=== PATIENT | female | born 1945 | race Caucasian/White ===

== ENCOUNTER 2021-05-14 10:52 | Inpatient (IN) ==
[2021-05-14] MEDS ORDERED: *HR* HYDROmorphone PF 0.5 MG/0.5 ML SYRINGE IVP PRN (11:12)
[2021-05-14] MEDS ORDERED: Ringers Solution, Lactated 1,000 ML IVC SCH (11:15)
[2021-05-14] MEDS ORDERED: Acetaminophen IV 1,000 MG/100 ML BAG IVPB ONE (11:24)
[2021-05-14] MEDS ORDERED: cefOXitin 2,000 MG in Water for inj. (sterile) 10 ML IVP ONE (11:26)
[2021-05-14] MEDS ORDERED: Lidocaine -MPF 2% 5 ML VIAL ONE (13:12)
[2021-05-14] MEDS ORDERED: *HR* Succinylcholine 200 MG/10 ML VIAL IVP ONE (13:12)
[2021-05-14] MEDS ORDERED: *HR* Rocuronium Bromide 50 MG/5 ML VIAL ONE ×2 (13:12→16:57)
[2021-05-14] MEDS ORDERED: Ondansetron 4 MG/2 ML VIAL ONE (13:13)
[2021-05-14] MEDS ORDERED: Lidocaine HCL 4 ML Topical Solution (Laryng-O-Jet Kit Sterile Pak) TP ONE (13:13)
[2021-05-14] MEDS ORDERED: *HR* Propofol 200 MG/20 ML VIAL IVP ONE (13:41)
[2021-05-14] MEDS ORDERED: *HR* FentaNYL (PF) 100 MCG/2 ML VIAL ONE ×2 (14:14→16:03)
[2021-05-14] MEDS ORDERED: Sugammadex Sodium 200 MG/2 ML VIAL IV ONE (17:34)
[2021-05-14] MEDS ORDERED: *HR* HYDROMORPHONE 2 MG/ML VIAL ONE (17:42)
[2021-05-14] MEDS ORDERED: D5% in Water 1,000 ML IVC PRN (19:30)
[2021-05-14] MEDS ORDERED: Loratadine 10 MG TABLET PO PRN (19:30)
[2021-05-14] MEDS ORDERED: *HR* Dextrose 50 % in Water (Syg) 50 ML SYRINGE IVP PRN (19:30)
[2021-05-14] MEDS ORDERED: Dextrose Gel 15 GM/37.5 ML TUBE PO PRN ×2 (19:30)
[2021-05-14] MEDS ORDERED: Fluticasone Propionate Nasal 50 MCG/SPRAY BOTTLE NS PRN (19:30)
[2021-05-14] MEDS: Acetaminophen IV 1,000 MG/100 ML BAG IVPB SCH (21:26)
[2021-05-14] MEDS: Insulin LISPRO 300 UNITS/3 ML VIAL SUBQ SCH (21:27)
[2021-05-14] MEDS: FLUoxetine 20 MG CAPSULE PO SCH (21:27)
[2021-05-14] MEDS: 0.9 % Sodium Chloride 1,000 ML IVC SCH (21:46)
[2021-05-15] MEDS: Piperacillin/Tazobactam 3.375 GM in 0.9 % Sodium Chloride Mini Bag 100 ML IVPB SCH ×3 (00:06→15:10)
[2021-05-15] MEDS: Acetaminophen IV 1,000 MG/100 ML BAG IVPB SCH ×5 (00:06→23:24)
[2021-05-15] MEDS: Insulin LISPRO 300 UNITS/3 ML VIAL SUBQ SCH ×5 (00:07→22:42)
[2021-05-15 02:19] LABS: Basophils % 0.1 %; Hematocrit 24.1 % (35.3-44.9); Hemoglobin 8.5 g/dL (11.5-15.4); Immature Granulocytes % 0.6 % (0-4); Lymphocytes # 0.3 K/mcL (0.6-4.6); Lymphocytes % 2.2 %; Mean Corpuscular HGB Conc 35.3 g/dL (31.6-35.5); Mean Corpuscular Hemoglobin 38.3 pg (28.0-33.3); Mean Corpuscular Volume 108.6 fL (83.0-100.0); Mean Platelet Volume 9.3 fL (9.4-12.4); Monocytes # 0.7 K/mcL (0.0-1.3); Monocytes % 4.9 %; Nucleated Red Blood Cells 0.3 /100 WBC (0); Platelet Count 340 K/mcL (140-400); Red Blood Count 2.22 M/mcL (3.82-4.97); Red Cell Distribution Width 15.7 % (11.5-14.5); Segmented Neutrophils % 92.2 %; White Blood Count 15.2 K/mcL (4.3-11.1)
[2021-05-15 02:37] LABS: BUN/Creatinine Ratio 14 (6-26); Blood Urea Nitrogen 8 mg/dL (8-23); Carbon Dioxide 24 mEq/L (23-29); Chloride 98 mEq/L (98-107); Glucose 140 mg/dL (70-105); Magnesium 1.7 mg/dL (1.6-2.6); Osmolality,Calculated 271 (280-300); Phosphorous 4.5 mg/dL (2.7-4.5); Potassium 3.6 mEq/L (3.5-5.1); Sodium 130 mEq/L (136-145); eGFR For African Americans > 60 (> 60); eGFR For Non-African Americans > 60 (> 60)
[2021-05-15] MEDS: Levothyroxine 25 MCG TABLET PO SCH (06:07)
[2021-05-15] MEDS: Pantoprazole 40 MG VIAL IVP SCH (08:03)
[2021-05-15] MEDS: amLODIPine 5 MG TABLET PO SCH (08:03)
[2021-05-15] MEDS: FLUoxetine 20 MG CAPSULE PO SCH ×3 (08:04→19:57)
[2021-05-15] MEDS: hydroCHLOROthiazide 25 MG TABLET PO SCH (08:04)
[2021-05-15] MEDS: 0.9 % Sodium Chloride 1,000 ML IVC SCH (09:58)
[2021-05-15] MEDS ORDERED: *HR* Heparin 5,000 UNIT/ML VIAL SQ SCH (18:00)
[2021-05-15] MEDS ORDERED: *HR* FentaNYL (PF) 100 MCG/2 ML VIAL ONE (19:22)
[2021-05-16] MEDS: Ondansetron 4 MG/2 ML VIAL IVP PRN (01:25)
[2021-05-16 04:18] LABS: BUN/Creatinine Ratio 12 (6-26); Blood Urea Nitrogen 5 mg/dL (8-23); Calcium 7.9 mg/dL (8.6-10.3); Carbon Dioxide 23 mEq/L (23-29); Chloride 100 mEq/L (98-107); Glucose 142 mg/dL (70-105); Osmolality,Calculated 272 (280-300); Sodium 131 mEq/L (136-145); eGFR For African Americans > 60 (> 60); eGFR For Non-African Americans > 60 (> 60)
[2021-05-16 05:34] LABS: Basophils # 0.1 K/mcL (0.0-0.2); Basophils % 0.6 %; Eosinophils # 0.1 K/mcL (0.0-0.6); Eosinophils % 0.8 %; Hematocrit 18.2 % (35.3-44.9); Hemoglobin 6.3 g/dL (11.5-15.4); Immature Granulocytes % 0.6 % (0-4); Lymphocytes # 0.8 K/mcL (0.6-4.6); Lymphocytes % 8.3 %; Mean Corpuscular HGB Conc 34.6 g/dL (31.6-35.5); Mean Corpuscular Hemoglobin 38.7 pg (28.0-33.3); Mean Corpuscular Volume 111.7 fL (83.0-100.0); Mean Platelet Volume 9.7 fL (9.4-12.4); Monocytes % 10.6 %; Neutrophils # 7.2 K/mcL (1.6-8.9); Nucleated Red Blood Cells 0.4 /100 WBC (0); Platelet Count 285 K/mcL (140-400); Red Blood Count 1.63 M/mcL (3.82-4.97); Red Cell Distribution Width 16.3 % (11.5-14.5); Segmented Neutrophils % 79.1 %; White Blood Count 9.1 K/mcL (4.3-11.1)
[2021-05-16 05:50] LABS: Anisocytosis 2+ (Not Present)
[2021-05-16 05:51] LABS: Macrocytosis Present (Not Present); Platelet Estimate Normal (Normal); Poikilocytosis 1+ (Not Present)
[2021-05-16] MEDS: Acetaminophen IV 1,000 MG/100 ML BAG IVPB SCH ×4 (05:56→23:46)
[2021-05-16] MEDS: Insulin LISPRO 300 UNITS/3 ML VIAL SUBQ SCH ×4 (07:27→21:44)
[2021-05-16] MEDS ORDERED: 0.9 % Sodium Chloride 250 ML ONE (07:32)
[2021-05-16] MEDS ORDERED: Furosemide 20 MG/2 ML VIAL IVP ONE (08:17)
[2021-05-16 08:30] LABS: Magnesium 1.6 mg/dL (1.6-2.6); Phosphorous 2.2 mg/dL (2.7-4.5)
[2021-05-16] MEDS: Pantoprazole 40 MG VIAL IVP SCH (10:07)
[2021-05-16] MEDS: FLUoxetine 20 MG CAPSULE PO SCH ×3 (10:08→21:44)
[2021-05-16] MEDS: hydroCHLOROthiazide 25 MG TABLET PO SCH (10:08)
[2021-05-16] MEDS: amLODIPine 5 MG TABLET PO SCH (10:08)
[2021-05-16 12:05] LABS: Hematocrit 23.8 % (35.3-44.9)
[2021-05-16 12:06] LABS: Hemoglobin 8.3 g/dL (11.5-15.4)
[2021-05-16] MEDS ORDERED: Potassium Phosphate 44 MEQ in 0.9 % Sodium Chloride 250 ML IVPB ONE (13:00)
[2021-05-17 01:37] LABS: BUN/Creatinine Ratio 11 (6-26); Blood Urea Nitrogen 5 mg/dL (8-23); Calcium 8.1 mg/dL (8.6-10.3); Carbon Dioxide 27 mEq/L (23-29); Chloride 97 mEq/L (98-107); Glucose 123 mg/dL (70-105); Magnesium 1.6 mg/dL (1.6-2.6); Osmolality,Calculated 271 (280-300); Phosphorous 3.4 mg/dL (2.7-4.5); Potassium 3.2 mEq/L (3.5-5.1); Sodium 131 mEq/L (136-145); eGFR For African Americans > 60 (> 60); eGFR For Non-African Americans > 60 (> 60)
[2021-05-17 02:53] LABS: Basophils # 0.1 K/mcL (0.0-0.2); Basophils % 0.7 %; Eosinophils # 0.2 K/mcL (0.0-0.6); Eosinophils % 3.3 %; Hematocrit 23.3 % (35.3-44.9); Immature Granulocytes % 0.6 % (0-4); Lymphocytes # 0.9 K/mcL (0.6-4.6); Lymphocytes % 13.8 %; Mean Corpuscular HGB Conc 34.3 g/dL (31.6-35.5); Mean Corpuscular Hemoglobin 35.7 pg (28.0-33.3); Mean Platelet Volume 9.4 fL (9.4-12.4); Monocytes # 0.9 K/mcL (0.0-1.3); Monocytes % 13.6 %; Neutrophils # 4.6 K/mcL (1.6-8.9); Nucleated Red Blood Cells 0.4 /100 WBC (0); Platelet Count 308 K/mcL (140-400); Red Blood Count 2.24 M/mcL (3.82-4.97); Red Cell Distribution Width 20.9 % (11.5-14.5); White Blood Count 6.7 K/mcL (4.3-11.1)
[2021-05-17] MEDS: Acetaminophen IV 1,000 MG/100 ML BAG IVPB SCH (05:23)
[2021-05-17] MEDS: Levothyroxine 25 MCG TABLET PO SCH (05:23)
[2021-05-17] MEDS: Ondansetron 4 MG/2 ML VIAL IVP PRN (05:37)
[2021-05-17] MEDS: Insulin LISPRO 300 UNITS/3 ML VIAL SUBQ SCH ×4 (08:15→21:07)
[2021-05-17] MEDS ORDERED: *HR* HYDROcodone/Acet 5/325 mg TABLET PO ONE (09:14)
[2021-05-17] MEDS ORDERED: Acetaminophen 325 MG TABLET PO PRN (09:16)
[2021-05-17] MEDS: amLODIPine 5 MG TABLET PO SCH (10:02)
[2021-05-17] MEDS: hydroCHLOROthiazide 25 MG TABLET PO SCH (10:02)
[2021-05-17] MEDS: FLUoxetine 20 MG CAPSULE PO SCH ×3 (10:03→21:07)
[2021-05-17] MEDS: Pantoprazole 40 MG VIAL IVP SCH (10:03)
[2021-05-17] MEDS: *HR* HYDROcodone/Acet 5/325 mg TABLET PO PRN ×2 (11:43→22:28)
[2021-05-18 02:57] LABS: Basophils # 0.1 K/mcL (0.0-0.2); Basophils % 0.9 %; Eosinophils # 0.2 K/mcL (0.0-0.6); Eosinophils % 2.2 %; Hematocrit 24.1 % (35.3-44.9); Hemoglobin 8.2 g/dL (11.5-15.4); Immature Granulocytes % 0.7 % (0-4); Lymphocytes # 0.8 K/mcL (0.6-4.6); Lymphocytes % 12.5 %; Mean Corpuscular Hemoglobin 35.3 pg (28.0-33.3); Mean Corpuscular Volume 103.9 fL (83.0-100.0); Mean Platelet Volume 9.5 fL (9.4-12.4); Monocytes # 0.8 K/mcL (0.0-1.3); Monocytes % 11.9 %; Neutrophils # 4.8 K/mcL (1.6-8.9); Nucleated Red Blood Cells 1.3 /100 WBC (0); Platelet Count 332 K/mcL (140-400); Red Blood Count 2.32 M/mcL (3.82-4.97); Segmented Neutrophils % 71.8 %; White Blood Count 6.7 K/mcL (4.3-11.1)
[2021-05-18] MEDS: Levothyroxine 25 MCG TABLET PO SCH (05:46)
[2021-05-18 09:07] VITALS: BP 117/54; PULSE 85; TEMP 96.9; O2SAT 92
[2021-05-18] MEDS: Insulin LISPRO 300 UNITS/3 ML VIAL SUBQ SCH (09:48)
[2021-05-18] MEDS: FLUoxetine 20 MG CAPSULE PO SCH (09:58)
[2021-05-18] MEDS: Pantoprazole 40 MG VIAL IVP SCH (09:58)
[2021-05-18] MEDS: hydroCHLOROthiazide 25 MG TABLET PO SCH (09:58)
[2021-05-18] MEDS: amLODIPine 5 MG TABLET PO SCH (09:58)
[2021-05-18] MEDS: *HR* HYDROcodone/Acet 5/325 mg TABLET PO PRN (11:26)
== END 2021-05-18 12:00 | disposition home or self-care (01) | DRG 331 ==
LOC: SAMDAY 10:52 → 3ANU 19:00
PROVIDERS: ADMIT Surgery; ATTEND Surgery

== ENCOUNTER 2021-12-15 07:43 | Inpatient (IN) ==
[2021-12-15] MEDS ORDERED: Acetaminophen IV 1,000 MG/100 ML BAG IVPB ONE (08:56)
[2021-12-15] MEDS ORDERED: Ondansetron 4 MG/2 ML VIAL IVP PRN ×2 (08:57→15:33)
[2021-12-15] MEDS ORDERED: *HR* FentaNYL (PF) 100 MCG/2 ML VIAL IVP PRN (08:57)
[2021-12-15] MEDS ORDERED: Ringers Solution, Lactated 1,000 ML IVC SCH (09:00)
[2021-12-15] MEDS ORDERED: CeFAZolin Syr 2,000MG/20 ML 2,000 MG/20 ML SYRINGE IVPB ONE (09:00)
[2021-12-15] MEDS ORDERED: *HR* Propofol 200 MG/20 ML VIAL IVP ONE (10:42)
[2021-12-15] MEDS ORDERED: *HR* Rocuronium Bromide 50 MG/5 ML VIAL ONE ×2 (10:42→12:24)
[2021-12-15] MEDS ORDERED: Lidocaine -MPF 2% 2 ML VIAL ONE (10:42)
[2021-12-15] MEDS ORDERED: Ondansetron 4 MG/2 ML VIAL ONE (10:42)
[2021-12-15] MEDS ORDERED: *HR* FentaNYL (PF) 100 MCG/2 ML VIAL ONE ×2 (10:44→12:57)
[2021-12-15] MEDS ORDERED: Sugammadex Sodium 200 MG/2 ML VIAL IV ONE (12:29)
[2021-12-15] MEDS ORDERED: *HR* HYDROMORPHONE 2 MG/ML VIAL ONE (13:20)
[2021-12-15] MEDS ORDERED: Naloxone 0.4 MG/ML INJ IVP PRN ×2 (14:34→15:33)
[2021-12-15] MEDS ORDERED: D5% in Water 1,000 ML IVC PRN (15:33)
[2021-12-15] MEDS ORDERED: NON-FORMULARY MEDICATION 1 EACH EACH (Alendronate Sodium [Fosamax] 70 MG Tablet) PO SCH (15:33)
[2021-12-15] MEDS ORDERED: *HR* OxyCODONE/APAP 5/325 TABLET PO PRN (15:33)
[2021-12-15] MEDS ORDERED: Dextrose Gel 15 GM/37.5 ML TUBE PO PRN ×2 (15:33)
[2021-12-15] MEDS ORDERED: *HR* Metoprolol 5 MG/5 ML VIAL IVP PRN (15:33)
[2021-12-15] MEDS ORDERED: *HR* Dextrose 50 % in Water (Syg) 50 ML SYRINGE IVP PRN (15:33)
[2021-12-15] MEDS ORDERED: Fluticasone Propionate Nasal 50 MCG/SPRAY BOTTLE NS PRN (15:33)
[2021-12-15] MEDS: *HR* OxyCODONE/APAP 7.5/325 TABLET PO PRN (16:15)
[2021-12-15] MEDS: 0.9 % Sodium Chloride 1,000 ML IVC SCH (16:20)
[2021-12-15] MEDS: CeFAZolin 2 GM/120 ML BAG IVPB SCH (18:35)
[2021-12-15] MEDS: Morphine Sulfate Oral CONC 10 MG/0.5 ML ORAL.SYG SL PRN (19:49)
[2021-12-15] MEDS: Insulin LISPRO 300 UNITS/3 ML VIAL SUBQ SCH (21:53)
[2021-12-15] MEDS: *HR* Metformin 500 MG TABLET PO SCH (21:53)
[2021-12-16] MEDS: Morphine Sulfate Oral CONC 10 MG/0.5 ML ORAL.SYG SL PRN (03:07)
[2021-12-16] MEDS: CeFAZolin 2 GM/120 ML BAG IVPB SCH ×2 (03:07→09:25)
[2021-12-16] MEDS: Levothyroxine 25 MCG TABLET PO SCH (06:33)
[2021-12-16 07:03] LABS: Hematocrit 23.7 % (35.3-44.9); Mean Corpuscular HGB Conc 33.3 g/dL (31.6-35.5); Mean Corpuscular Hemoglobin 37.8 pg (28.0-33.3); Mean Corpuscular Volume 113.4 fL (83.0-100.0); Nucleated Red Blood Cells 0.3 /100 WBC (0); Platelet Count 435 K/mcL (140-400); Red Blood Count 2.09 M/mcL (3.82-4.97)
[2021-12-16 07:25] LABS: BUN/Creatinine Ratio 30 (6-26); Blood Urea Nitrogen 17 mg/dL (8-23); Calcium 8.7 mg/dL (8.6-10.3); Carbon Dioxide 26 mEq/L (23-29); Chloride 102 mEq/L (98-107); Glucose 133 mg/dL (70-105); Osmolality,Calculated 281 (280-300); Potassium 4.2 mEq/L (3.5-5.1); Sodium 134 mEq/L (136-145); eGFR For African Americans > 60 (> 60); eGFR For Non-African Americans > 60 (> 60)
[2021-12-16] MEDS: hydroCHLOROthiazide 25 MG TABLET PO SCH (07:51)
[2021-12-16] MEDS: *HR* OxyCODONE/APAP 7.5/325 TABLET PO PRN (07:51)
[2021-12-16] MEDS: Folic Acid 1 MG TABLET PO SCH (07:51)
[2021-12-16] MEDS: 0.9 % Sodium Chloride 1,000 ML IVC SCH (07:53)
[2021-12-16] MEDS: Insulin LISPRO 300 UNITS/3 ML VIAL SUBQ SCH ×3 (07:57→17:01)
[2021-12-16] MEDS ORDERED: Acetaminophen IV 1,000 MG/100 ML BAG IVPB ONE (08:32)
[2021-12-16 08:35] LABS: Hemoglobin 7.9 g/dL (11.5-15.4); White Blood Count 10.7 K/mcL (4.3-11.1)
[2021-12-16] MEDS: Gabapentin 300 MG CAPSULE PO SCH ×3 (09:26→20:50)
[2021-12-16] MEDS: Ibuprofen 400 MG TABLET PO SCH ×4 (09:26→16:55)
[2021-12-16] MEDS: methocarbamoL 500 MG TABLET PO SCH ×4 (09:27→16:55)
[2021-12-16 12:30] LABS: Anisocytosis 1+ (Not Present); Lymphocytes # 0.6 K/mcL (0.6-4.6); Macrocytosis Present (Not Present); Monocytes # 0.9 K/mcL (0.0-1.3); Neutrophils # 9.2 K/mcL (1.6-8.9)
[2021-12-16 12:31] LABS: Toxic Granulation Present (Not Present)
[2021-12-16] MEDS: *HR* Metformin 500 MG TABLET PO SCH (16:55)
[2021-12-17] MEDS: Ibuprofen 400 MG TABLET PO SCH ×3 (01:18→16:27)
[2021-12-17] MEDS: methocarbamoL 500 MG TABLET PO SCH ×3 (01:18→17:32)
[2021-12-17] MEDS: Levothyroxine 25 MCG TABLET PO SCH (05:23)
[2021-12-17] MEDS: Gabapentin 300 MG CAPSULE PO SCH ×3 (07:52→21:01)
[2021-12-17] MEDS: Folic Acid 1 MG TABLET PO SCH (07:53)
[2021-12-17] MEDS: hydroCHLOROthiazide 25 MG TABLET PO SCH (07:54)
[2021-12-17] MEDS: Insulin LISPRO 300 UNITS/3 ML VIAL SUBQ SCH ×3 (08:45→17:15)
[2021-12-17] MEDS: *HR* OxyCODONE/APAP 7.5/325 TABLET PO PRN (10:34)
[2021-12-17] MEDS: *HR* Metformin 500 MG TABLET PO SCH (16:27)
[2021-12-17] MEDS: Cyclosporine [Restasis] 1 EACH Droperette OP SCH (21:03)
[2021-12-18] MEDS: Ibuprofen 400 MG TABLET PO SCH ×4 (01:43→23:58)
[2021-12-18] MEDS: methocarbamoL 500 MG TABLET PO SCH ×4 (01:44→23:58)
[2021-12-18] MEDS: Levothyroxine 25 MCG TABLET PO SCH (06:31)
[2021-12-18] MEDS: Insulin LISPRO 300 UNITS/3 ML VIAL SUBQ SCH ×3 (08:10→17:27)
[2021-12-18] MEDS ORDERED: NON-FORMULARY MEDICATION 1 EACH EACH (Pantoprazole Sodium [Protonix] 40 MG Tablet.Dr) PO SCH (09:00)
[2021-12-18] MEDS: Aspirin 81 MG TAB.CHEW PO SCH (09:43)
[2021-12-18] MEDS: hydroCHLOROthiazide 25 MG TABLET PO SCH (09:44)
[2021-12-18] MEDS: Gabapentin 300 MG CAPSULE PO SCH ×3 (09:44→20:59)
[2021-12-18] MEDS: Folic Acid 1 MG TABLET PO SCH (09:44)
[2021-12-18] MEDS: FLUoxetine 20 MG CAPSULE PO SCH (09:44)
[2021-12-18] MEDS: Cyclosporine [Restasis] 1 EACH Droperette OP SCH ×2 (10:32→20:59)
[2021-12-18] MEDS: Ipratropium/Albuterol Neb 3 ML IH SCH ×4 (11:08→23:02)
[2021-12-18] MEDS: *HR* Metformin 500 MG TABLET PO SCH (17:25)
[2021-12-19 03:17] VITALS: TEMP 98.1
[2021-12-19] MEDS: Ipratropium/Albuterol Neb 3 ML IH SCH ×3 (04:03→11:27)
[2021-12-19] MEDS: Levothyroxine 25 MCG TABLET PO SCH (06:02)
[2021-12-19 07:07] VITALS: BP 125/60; PULSE 72
[2021-12-19] MEDS: hydroCHLOROthiazide 25 MG TABLET PO SCH (08:22)
[2021-12-19] MEDS: Folic Acid 1 MG TABLET PO SCH (08:22)
[2021-12-19] MEDS: FLUoxetine 20 MG CAPSULE PO SCH (08:23)
[2021-12-19] MEDS: Gabapentin 300 MG CAPSULE PO SCH (08:23)
[2021-12-19] MEDS: Aspirin 81 MG TAB.CHEW PO SCH (08:23)
[2021-12-19] MEDS: Ibuprofen 400 MG TABLET PO SCH (08:23)
[2021-12-19 08:26] VITALS: O2SAT 93
[2021-12-19] MEDS: Insulin LISPRO 300 UNITS/3 ML VIAL SUBQ SCH (08:33)
[2021-12-19] MEDS ORDERED: polyethylene glycoL 3350 17 GM POWD.PACK PO ONE (10:25)
[2021-12-19] MEDS: Cyclosporine [Restasis] 1 EACH Droperette OP SCH (11:24)
[2021-12-19] MEDS: methocarbamoL 500 MG TABLET PO SCH (11:26)
== END 2021-12-19 13:05 | disposition home health service (06) | DRG 355 ==
LOC: SAMDAY 07:43 → 3BNU 15:49
PROVIDERS: ADMIT Surgery; ATTEND Surgery